=== PATIENT | female | born 2000 | race Caucasian/White ===

== ENCOUNTER 2025-09-11 13:49 | Emergency (ER) | payer SELFPAY ==
[2025-09-11] MEDS ORDERED: Ketorolac Tromethamine 30 MG (1 mL) VIAL ONE (14:34)
[2025-09-11] MEDS ORDERED: Metoclopramide HCl 10 MG (2 mL) VIAL ONE (14:34)
[2025-09-11] MEDS ORDERED: diphenhydrAMINE 50 MG/ML VIAL ONE (14:34)
[2025-09-11] MEDS ORDERED: Proparacaine 0.5% Opth 15 ML BOT ONE (14:47)
[2025-09-11] MEDS ORDERED: Fluorescein Opthalmic Strip ONE (14:47)
[2025-09-11 15:07] LABS: #Basophils 0.05 10x3/uL (0.0-0.2); #Eosinophils 0.16 10x3/uL (0.0-0.5); #Monocytes 0.63 10x3/uL (0.0-1.1); #Neutrophils 4.98 10x3/uL (1.5-8.4); %Basophils 0.5 % (0.0-2.0); %Eosinophils 1.6 % (0.0-6.0); %Lymphocytes 41.3 % (18.0-47.0); %Monocytes 6.3 % (0.0-10.0); %Neutrophils 50.0 % (40.0-75.0); Hematocrit 43.5 % (34.9-44.5); Hemoglobin 14.4 g/dL (12.0-15.5); Mean Corpuscular Hemoglobin 29.3 pg (27.0-33.0); Mean Corpuscular Volume 88.4 fL (81.6-98.3); Platelet Count 359 10x3/uL (150-450); Red Blood Cell (RBC) Count 4.92 10x6/uL (3.90-5.03); White Blood Cell (WBC) Count 9.96 10x3/uL (3.5-10.5)
[2025-09-11 15:27] LABS: ALT (SGPT) 48 U/L (Less than 34); AST (SGOT) 46 U/L (11-34); Albumin 4.5 g/dL (3.1-4.5); Alkaline Phosphatase 71 U/L (40-110); Anion Gap 12 mmol/L (10-20); BHCG - Serum Negative (NEGATIVE); BUN (Urea Nitrogen) 7 mg/dL (7.0-18.7); Bilirubin, Total 0.4 mg/dL (0.3-1.2); Calc. Creatinine Clearance 0 mL/min (70-130); Calcium 9.1 mg/dL (7.8-10.44); Carbon Dioxide 22 mmol/L (22-29); Chloride 108 mmol/L (98-107); Globulin 3.0 g/dL (2.4-3.5); Glucose 88 mg/dL (70-105); Potassium 4.0 mmol/L (3.5-5.1); Pregs Control Background? CLEAR/WHITE (CLR/WHITE); Pregs Control Bar Appear? YES (CONTROL BAR); Sodium 138 mmol/L (136-145)
== END 2025-09-11 15:55 | disposition home or self-care (01) ==
LOC: CSHERS 13:49
DX: S00.11XA Contusion of right eyelid and periocular area, initial encounter (principal); G43.909 Migraine, unspecified, not intractable, without status migrainosus; X58.XXXA Exposure to other specified factors, initial encounter
CPT/HCPCS: 80053; 84703; 85025; 96365; 96375; J1200; J1885; J2765